=== PATIENT | male | born 1965 | race Caucasian/White ===

== ENCOUNTER 2023-08-14 07:32 | Outpatient (REF) | payer OTHER, SELFPAY ==
[2023-08-14 11:43] LABS: Appearance Urine Clear; Color Urine Dark Yellow; Glucose Urine UA Negative (Negative); Leukocyte Esterase Urine Negative (Negative); Nitrite Urine Negative (Negative); Specific Gravity - Urine 1.025 (1.005-1.025); Urine Blood Negative (Negative); Urine Ketones Trace mg/dL (Negative); Urine Protein Negative (Neg-Trace)
[2023-08-14 12:31] LABS: Creatinine Urine 216.22 mg/dL; Microalbum/Creatinine Ratio Ur 4.6 ug/mg cr (<30)
[2023-08-14 12:48] LABS: Prostate Specific Antigen Scr 3.87 ng/mL (<0.05-4.0)
[2023-08-14 12:55] LABS: Alanine Aminotransferase 45 U/L (0-40); Albumin Level 4.7 g/dL (3.5-5.0); Alkaline Phosphatase 58 U/L (39-117); Anion Gap 14 (12-20); Aspartate Amino Transferase 36 U/L (5-37); Bilirubin Total 0.6 mg/dL (0.0-1.0); Blood Urea Nitrogen 14 mg/dL (9-16); Calcium 9.8 mg/dL (8.4-10.2); Carbon Dioxide 28 mmol/L (22-29); Chloride 101 mmol/L (96-108); Cholesterol 206 mg/dL (<200); Estimated Glomerular Filt Rate > 60; Glucose Fasting 111 mg/dL (60-99); HDL Cholesterol 72 mg/dL (>40); LDL Cholesterol Calculated 110 mg/dL (<100); Potassium 3.6 mmol/L (3.3-5.1); Sodium 139 mmol/L (135-145); Total Protein 7.6 g/dL (6.5-8.0); Triglycerides 124 mg/dL (<150)
[2023-08-14 12:57] LABS: TSH reflex Free T4 3.02 uIU/mL (0.32-4.0)
== END 2023-08-14 07:33 | disposition home or self-care (01) ==
LOC: HO.WFDLDS 07:32
PROVIDERS: Visit Provider Family Medicine
DX: Z00.00 Encounter for general adult medical examination without abnormal findings (principal); Z12.5 Encounter for screening for malignant neoplasm of prostate; I10 Essential (primary) hypertension
CPT/HCPCS: 36415; 80053; 80061; 81003; 82043; 82570; 84153; 84443

== ENCOUNTER 2023-08-15 15:53 | Outpatient (AMB) | payer OTHER, SELFPAY ==
--- NOTE | 2023-08-15 15:59 | A.OFFPC_ITS ---
Vital Signs 08/15/23 16:06 Height 5 ft 9.33 in Weight 211 lb BMI 30.9 BP 116/74 Blood Pressure Location Lt brachial Position Sitting Respiration 14 Pulse 86 Pulse Source Pulse Oximeter Temp 98.5 F Temp Source Oral Pulse Oximetry (%) 95 Oxygen Delivery Method Room Air Intake Visit Reasons: CPE with f/u labs and health maintenance Intake Note: Physical. Lab results. Patient forgot to mention last visit that he is supposed to be on Lisinopril 40mg, he has been taking 20mg twice daily when blood pressure is elevated. Allergies No Known Allergies Allergy (Verified 11/20/22 15:13) Tobacco use date assessed: 08/15/23 Dental Screening Did you have a dental visit in the last 12 months?: Yes Did you have a dental problem in the last 6 months where you did not have access to dental care?: No Was dental information given to patient?: Patient has dentist HPI CPE with f/u labs and health maintenance HPI Details 57 y/o male presents for a CPE with f/u labs and health maintenance. Labs were drawn 08/14/23. Reviewed labs with pt. Elevated fasting glucose of 111. A1c today 08/15/23 5.4%. Elevated ALT of 45. AST 36. Triglycerides 124. TC 206. LDL 110. HDL 72. Blood pressure today 116/74. He reports he is taking lisinopril 40mg and hydrochlorothiazide 12.5mg daily. He states he thought his previous prescription was 20mg but had went home and saw it was actually 40mg. Pt notes he is due for a colonoscopy. [facility] Medical History (Updated 08/15/23 @ 17:05 by Prieto Bhatia) Infected abrasion of skin of right middle finger High blood pressure Family History (Updated 11/20/22 @ 15:20 by Cassidy Benites [facility]) Father Diabetes Paternal Grandmother No problems noted. 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 1. Little interest or pleasure in doing things: not at all 2. Feeling down, depressed, or hopeless: not at all 4. Feeling tired or having little energy: not at all 5. Poor appetite or overeating: not at all 6. Feeling bad about yourself - or that you are a failure or have let yourself or your family down: not at all 7. Trouble concentrating on things, such as reading the newspaper or watching television: not at all 8. Moving or speaking so slowly that other people could have noticed. Or the opposite - being so fidgety or restless that you have been moving around a lot more than usual: not at all 9. Thoughts that you would be better off or of hurting yourself in some way: not at all Depression Screening Interpretation: Negative Depression Screening Done: Yes [id number] - PHQ-9 Billing: Yes Source: Developed by Drs. Darnell Reza, Mary Rich, Chad Todd and colleagues, with an educational odalis from [employer]. Thrive Questionnaire Date Thrive assessed: 08/15/23 What is your living situation today?: I have a steady place to live Within the past 12 months, did the food you bought not last and you didn't have the money to get more?: Never true Within the past 12 months, did you worry whether your food would run out before you got money to buy more?: Never true Do you have trouble paying for medicines?: No Do you have trouble getting transportation to medical appointments?: No Do you have trouble paying your heating and electricity bill?: No Do you have trouble taking care of your child, family member or friend?: No Do you have trouble with day-to-day activities such as bathing, preparing meals, shopping, managing finances, etc.?: No Are you currently unemployed and looking for a job?: No Are you interested in more education?: No Please select the resources that you would like help with: None THRIVE Score: 0 AUDIT C Alcohol Use Questionnaire (AUDIT-C) 1. How often do you have a drink containing alcohol?: 2-3 times a week 2. How many drinks containing alcohol do you have on a typical day when you are drinking?: 1 or 2 3. How often do you have six or more drinks on one occasion?: Never Total Score: 3 Review of Systems Const Denies chills, Denies fatigue, Denies fever(s), Denies headache(s) and Denies weakness Eyes Denies change in vision ENT Denies dizziness, Denies headache(s), Denies hearing loss, Denies nasal congestion, Denies sinus pain, Denies sinus pressure and Denies sore throat Card Denies chest pain, Denies lightheadedness, Denies dyspnea and Denies other (palpitations) Resp Denies cough, Denies dyspnea and Denies wheezing GI Denies abdominal pain, Denies melena, Denies hematochezia, Denies change in bowel habits, Denies dyspepsia and Denies nausea Denies hematuria and Denies dysuria Musc Denies abnormal gait, Denies myalgias, Denies arthralgias, Denies numbness and Denies tingling Skin/Breast Denies rash, Denies unusual bruising and Denies wounds Neuro Denies abnormal gait, Denies dizziness, Denies headache(s), Denies memory loss, Denies numbness, Denies Sensory deficit (Neuro), Denies tingling and Denies weakness Psych Denies anxiety, Denies depression and Denies memory loss Endo Denies cold intolerance, Denies fatigue, Denies heat intolerance, Denies polyd ipsia and Denies polyuria Tone/Lymph Denies easy bleeding and Denies easy bruising Aller/Immun Denies wheezing Physical exam (Primary Care) Vital Signs: Last Vital Signs Temp 98.5 F 08/15/23 16:06 Pulse 86 08/15/23 16:06 Resp 14 08/15/23 16:06 BP 116/74 08/15/23 16:06 Pulse Ox 95 08/15/23 16:06 Oxygen Delivery Method Room Air 08/15/23 16:06 BMI result Body Mass Index 30.9 Tobacco/Smoking Status: Tobacco use Status Tobacco use date assessed 08/15/23 08/15/23 16:10 Patient Tobacco Use Status Former Tobacco user 08/15/23 16:10 e-Cigarette/Vaping Use Never Used 08/15/23 16:00 Depression Screening Interpretation: Negative Thrive Assessment: Date of Thrive Assessment Date Thrive assessed 08/15/23 08/15/23 16:27 Const General: no acute distress, well developed, alert and awake Nutritional Appearance: well nourished Orientation/consciousness: patient oriented x3 HENMT Head: Yes normocephalic and Yes atraumatic Ears: hearing grossly normal bilaterally and TM's normal bilaterally General nose exam: Normal external nose present and Normal nares present Mouth: Normal oral and palatal mucosa present and moist mucous membranes Teeth and gingiva: dentition normal Throat: Yes posterior oropharynx normal Eyes General: appearance normal, both eyes and all related structures Pupils: Equal, round and reactive pupils present and Pupil accommodation reflex normal EOM: EOMs intact bilaterally Neck Neck: Yes normal visual inspection, Yes no lymphadenopathy and Yes trachea midline Thyroid: Thyroid normal Carotids: no bruits Lymphatic: no lymphadenopathy noted Chest Chest palpation & inspection: normal inspection of the chest Resp Effort & Inspection: normal respiratory effort Auscultation: clear to auscultation bilaterally Cardio Rate: regular rate Rhythm: regular rhythm Heart sounds: S1 normal heart sound present, S2 normal heart sound present, no gallops, no murmurs and no rubs Bruits: no abdominal aortic bruits and no carotid bruits GI Palpation (GI): No Abdominal aortic bruit present, Soft to palpation, nontender, No hepatosplenomegaly present and No Rebound tenderness present Auscultation: normal bowel sounds General: Yes no CVA tenderness Back/Spine/Pelvis Back: no CVA tenderness Cervical Spine: cervical ROM normal and No Cervical spine tenderness Thoracic/Lumbar Spine: thoraco-lumbar ROM normal, No pain with thoraco-lumbar ROM, No thoracic spinal tenderness and No lumbar spinal tenderness Skin Lesions: no lesions Rashes: no rashes Trauma: no lacerations or abrasions Wounds: no wounds Nails: normal Neuro General: patient oriented x3 Cranial nerves: Yes Equal, round and reactive pupils present Cognition (Neuro): normal cognition Gait exam (Neuro): Normal gait present Motor exam (neuro): 5/5 motor strength present throughout Sensory Exam: No Sensory deficit (Neuro) Deep tendon reflexes (DTR's): Right patellar reflex intensity grade: 2+ and Left patellar reflex intensity grade: 2+ Extrem General: Yes normal to inspection and No edema Psych Appearance: grossly normal Affect: normal affect Attitude: cooperative Thought process: Normal thought process present Results AMB Hemoglobin A1c AMB Hemoglobin A1c 5.4 % Last Edit by Cassidy Benites CMA on 08/15/23 17:02 Assessment and Plan Assessment & Plan (1) Adult general medical exam: Code(s): Z00.00 - Encounter for general adult medical examination without abnormal findings Plan: 57-year-old?male?presents?for?complete?physical?exam Encouraged?healthy?diet?with?active?lifestyle?and?plenty?of?exercise (2) High blood pressure: Code(s): I10 - Essential (primary) hypertension Plan: He?has?been?taking?lisinopril?40?mg?daily?and?hydrochlorothiazide?12.5?mg?daily. Blood?pressure?is?controlled.??Goal?is?less?than?140/90 Continue?current?medication?regimen.??Increased?lisinopril?as?our?med?list?recor ded?lisinopril?as?20?mg?daily. (3) Elevated ALT measurement: Code(s): R74.01 - Elevation of levels of liver transaminase levels Plan: Mildly?elevated?ALT?and?patient?has?known?fatty?liver?disorder.??Last?liver?ultr asound?around?10?years?ago Encouraged?weight?loss Will?repeat?liver?enzymes?and?if?they?are?the?same?or?high er?will?check?an?ultrasound. (4) Elevated fasting glucose: Code(s): R73.01 - Impaired fasting glucose Plan: A1c?5.4%?is?in?normal?range. Likely?has?some?insulin?resistance?and?has?a?strong?family?history?of?diabetes Encouraged?a?diet?lower?in?sugars?and?starches.??Encouraged?exercise?and? weight?loss (5) Screening for colon cancer: Code(s): Z12.11 - Encounter for screening for malignant neoplasm of colon Plan: Patient?had?a?colonoscopy?greater?than?10?years?ago. Will?refer?to?GI?for?colon?cancer?screen (6) Screening for prostate cancer: Code(s): Z12.5 - Encounter for screening for malignant neoplasm of prostate Plan: PSA?at?upper?limits?of?normal?range?will?repeat?this?to?check?for?stability. He?notes?that?it?has?been?in?the?upper?limits?of?normal?previously?and?he?has?borden d?some?workup?regarding?this. Denies?any?changes?in?urine?stream May?need?KYLE (7) Fatty liver disease, nonalcoholic: Code(s): K76.0 - Fatty (change of) liver, not elsewhere classified Plan: As?above Encouraged?weight?loss Orders: Orders Comprehensive [place]. Panel Fast Today R74.01 - Elevation of levels of liver transaminase levels, Z00.00 - Encounter for general adult medical examination without abnormal findings AMB Hemoglobin A1c Today Z13.9 - Encounter for screening, unspecified Hemoglobin A1c Today R73.01 - Impaired fasting glucose Prostate Specific Antigen Scr Today Z12.5 - Encounter for screening for malignant neoplasm of prostate Medications: Changed From lisinopril 20 mg PO DAILY 90 days 90 tabs 1RF To lisinopril 40 mg PO DAILY 90 tabs 1RF 90 days From hydrochlorothiazide 12.5 mg PO DAILY 30 days 30 tabs 1RF To hydrochlorothiazide 12.5 mg PO DAILY 90 tabs 1RF 90 days Coding Level of Care Code Est Pt Level 3 (64865) Est Pt Prev Care 40-64y(41660) Diagnoses Adult general medical exam Z00.00 High blood pressure I10 Elevated ALT measurement R74.01 Elevated fasting glucose R73.01 Screening for colon cancer Z12.11 Screening for prostate cancer Z12.5 Fatty liver disease, nonalcoholic K76.0
[2023-08-15 16:06] VITALS: BP 116/74; PULSE 86; RESP 14; TEMP 36.9; O2SAT 95; BMI 30.9
== END 2023-08-15 17:00 ==
PROVIDERS: PCP Family Medicine; Visit Provider Family Medicine
DX: Z00.00 Encounter for general adult medical examination without abnormal findings (principal); I10 Essential (primary) hypertension; R74.01 Elevation of levels of liver transaminase levels; R73.01 Impaired fasting glucose; Z12.11 Encounter for screening for malignant neoplasm of colon; Z12.5 Encounter for screening for malignant neoplasm of prostate; K76.0 Fatty (change of) liver, not elsewhere classified
CPT/HCPCS: 83036; 99396

== ENCOUNTER 2024-04-13 12:33 | Outpatient (AMB) | payer OTHER, SELFPAY ==
--- NOTE | 2024-04-13 12:35 | A.OFFPC_ITS ---
Vital Signs 04/13/24 12:39 Height 5 ft 9.33 in Weight 220 lb 4 oz BMI 32.2 BP 120/72 Blood Pressure Location Rt brachial Position Sitting Respiration 16 Pulse 62 Pulse Source Pulse Oximeter Temp 97.8 F Temp Source Oral Pulse Oximetry (%) 97 Oxygen Delivery Method Room Air Intake Visit Reasons: Feel like having large prostate Intake Note: patient here c/o having a large prostate Tourist Guide Required: No Allergies No Known Allergies Allergy (Verified 04/13/24 12:45) Medication List - Last Reconciled 04/13/24 by Hardik Montgomery CNP hydrochlorothiazide 12.5 mg PO DAILY 90 days lisinopril 40 mg PO DAILY 90 days Tobacco use date assessed: 04/13/24 Dental Screening Dental Screen Date: 04/13/24 Did you have a dental visit in the last 12 months?: Yes Did you have a dental problem in the last 6 months where you did not have access to dental care?: No Was dental information given to patient?: Patient has dentist HPI HPI Comments History of Present Illness Details 58-year-old male presents complaints of pressure sensation to his rectum, as though he had to have a bowel movement, for a few days, about 3 weeks ago. He notes associated inability to fully empty his bladder for a few days. His symptoms completely resolved. He denies acute symptoms at this time. He is a patient of Dr. Torres He admits to taking his medications as prescribed without adverse reactions [facility] Medical History (Updated 04/13/24 @ 13:00 by Hardik Montgomery CNP) Laboratory exam ordered as part of routine general medical examination Adult general medical exam Screening for colon cancer Screening for prostate cancer Infected abrasion of skin of right middle finger High blood pressure Family History (Updated 11/20/22 @ 15:20 by Cassidy Benites CMA) Father Diabetes Paternal Grandmother No problems noted. 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 1. Little interest or pleasure in doing things: not at all 2. Feeling down, depressed, or hopeless: not at all 3. Trouble falling or staying asleep, or sleeping too much: not at all 4. Feeling tired or having little energy: not at all 5. Poor appetite or overeating: not at all 6. Feeling bad about yourself - or that you are a failure or have let yourself or your family down: not at all 7. Trouble concentrating on things, such as reading the newspaper or watching television: not at all 8. Moving or speaking so slowly that other people could have noticed. Or the opposite - being so fidgety or restless that you have been moving around a lot more than usual: not at all 9. Thoughts that you would be better off or of hurting yourself in some way: not at all Total score: 0 Source: Developed by Drs. Darnell Reza, Mary Rich, Chad Todd and colleagues, with an educational odalis from [employer]. Thrive Questionnaire Date Thrive assessed: 04/13/24 I am a: Patient What is your living situation today?: I have a steady place to live Within the past 12 months, did the food you bought not last and you didn't have the money to get more?: Never true Within the past 12 months, did you worry whether your food would run out before you got money to buy more?: Never true Do you have trouble paying for medicines?: No Do you have trouble getting transportation to medical appointments?: No Do you have trouble paying your heating and electricity bill?: No Do you have trouble taking care of your child, family member or friend?: No Do you have trouble with day-to-day activities such as bathing, preparing meals, shopping, managing finances, etc.?: No Are you currently unemployed and looking for a job?: No Are you interested in more education?: No Please select the resources that you would like help with: None Currently or been in a relationship where the following occur: No concerns reported THRIVE Score: 0 AUDIT C Alcohol Use Questionnaire (AUDIT-C) 1. How often do you have a drink containing alcohol?: 2-3 times a week 2. How many drinks containing alcohol do you have on a typical day when you are drinking?: 1 or 2 3. How often do you have six or more drinks on one occasion?: Never Total Score: 3 REX-7 AMB Questionnaire REX-7 Date REX - 7 assessed: 04/13/24 Feeling nervous, anxious, or on edge: 0 = Not at all Not being able to stop or control worryin = Not at all Worrying too much about different things: 0 = Not at all Trouble relaxin = Not at all Being so restless that it is hard to sit still: 0 = Not at all Becoming easily annoyed or irritable: 0 = Not at all Feeling afraid as if something awful might happen: 0 = Not at all Total REX-7 score (0-4 normal; 5-9 mild; 10-14 moderate; 15-21 severe): 0 Source: Developed by Drs. Darnell Reza, Mary Rich, Chad Todd and colleagues, with an educational odalis from [employer]. REX-7 Assessment Billing REX-7 Assessment Tool: REX-7 Assessment 87199 Review of Systems Const Details: Const Denies chills, Denies fatigue, Denies fever(s), Denies headache(s) and Denies weakness ENT Denies dizziness and Denies headache(s) Card Denies chest pain, Denies lightheadedness, Denies dyspnea and Denies other (Palpitations) Resp Denies cough, Denies dyspnea, Denies wheezing and Denies other ( shortness of breath) GI Denies abdominal pain, Denies melena, Denies hematochezia, Denies change in bowel habits, Denies dyspepsia and Denies nausea Reports as per HPI Musc Denies abnormal gait, Denies myalgias, Denies arthralgias, Denies numbness and Denies tingling Skin/Breast Denies rash, Denies unusual bruising and Denies wounds Neuro Denies abnormal gait, Denies dizziness, Denies headache(s), Denies memory loss, Denies numbness, Denies Sensory deficit (Neuro), Denies tingling and Denies weakness Psych Denies anxiety, Denies depression, Denies memory loss Endo Denies cold intolerance, Denies fatigue, Denies heat intolerance, Denies polydipsia and Denies polyuria Aller/Immun Denies wheezing Physical exam (Primary Care) Vital Signs: Last Vital Signs Temp 97.8 F 04/13/24 12:39 Pulse 62 04/13/24 12:39 Resp 16 04/13/24 12:39 BP 120/72 04/13/24 12:39 Pulse Ox 97 04/13/24 12:39 Oxygen Delivery Method Room Air 04/13/24 12:39 BMI result Body Mass Index 32.2 Tobacco/Smoking Status: Tobacco use Status Tobacco use date assessed 04/13/24 04/13/24 12:42 Patient Tobacco Use Status Former Tobacco user 04/13/24 12:37 e-Cigarette/Vaping Use Never Used 04/13/24 12:37 PHQ-9: PHQ-9 Score PHQ-9: Total score 0 04/13/24 12:37 Thrive Assessment: Date of Thrive Assessment Date Thrive assessed 04/13/24 04/13/24 12:42 Currently or been in a relationship where the following occur: No concerns reported Const Other: General: no acute distress and well developed Nutritional Appearance: well nourished Orientation/consciousness: patient oriented x3 HENMT Head: Yes normocephalic and Yes atraumatic Eyes General: appearance normal, both eyes and all related structures Pupils: Equal, round and reactive pupils present EOM: EOMs intact bilaterally Resp Effort & Inspection: normal respiratory effort Auscultation: clear to auscultation bilaterally Cardio Rate: regular rate Rhythm: regular rhythm Heart sounds: S1 normal heart sound present, S2 normal heart sound present, no gallops, no murmurs and no rubs GI Palpation (GI): No Abdominal aortic bruit present, Soft to palpation, nontender, No hepatosplenomegaly present and No Rebound tenderness present Auscultation: normal bowel sounds General: Yes no CVA tenderness Back/Spine/Pelvis Back: no CVA tenderness Extrem General: Yes normal to inspection, No edema and No calf tenderness Skin General: warm and dry. Normal skin color. Normal skin turgor Neuro General: patient oriented x3, gait normal and no focal neuro deficit Cranial nerves: Yes Equal, round and reactive pupils present Cognition (Neuro): normal cognition Gait exam (Neuro): Normal gait present Sensory Exam: No Sensory deficit (Neuro) Psych Appearance: grossly normal Affect: normal affect Attitude: cooperative Thought process: Normal thought process present Coding Level of Care Code Est Pt Level 4 (54974) Diagnoses (genitourinary) symptoms R39.9 Additional Codes REX-7 Assessment Billing - REX-7 Assessment Tool: REX-7 Assessment 03785 ([id number]) Assessment & Plan Assessment & Plan (1) (genitourinary) symptoms: Code(s): R39.9 - Unspecified symptoms and signs involving the genitourinary system Category: Medical Plan: Enlarged prostate is likely although UTI may have been possible His PSA level in July was on the high end of normal, 3.87 Will recheck PSA level and check urinalysis/culture Referred to urology Advised to schedule a follow-up appointment with his PCP as planned for hypertension and labs review Return sooner with symptoms or concerns Verbalized understanding and agreed with treatment plan Orders: Orders PSA, Ultra Sensitive Today R39.9 - Unspecified symptoms and signs involving the genitourinary system UA CC w/rflx Micro + Cult Today R39.9 - Unspecified symptoms and signs involving the genitourinary system Referrals Urology Referral R39.9 - Unspecified symptoms and signs involving the genitourinary system
[2024-04-13 12:39] VITALS: BP 120/72; PULSE 62; RESP 16; TEMP 36.6; O2SAT 97; BMI 32.2
== END 2024-04-13 16:22 | disposition home or self-care (01) ==
PROVIDERS: PCP Family Medicine; Visit Provider Nurse Practitioner Family
DX: R39.9 Unspecified symptoms and signs involving the genitourinary system (principal)

== ENCOUNTER → 2024-04-13 12:33 | Outpatient (BNVA) | payer OTHER, SELFPAY | PROVIDERS: PCP Family Medicine; Visit Provider Nurse Practitioner Family ==

== ENCOUNTER 2024-04-13 13:07 | Outpatient (REF) | payer OTHER, SELFPAY ==
[2024-04-13 14:29] LABS: Estimated Average Glucose 114 mg/dL; Hemoglobin A1C 143.3385 umol/L; Hemoglobin A1c % 5.6 % (<6.0)
[2024-04-13 14:40] LABS: Alanine Aminotransferase 55 U/L (0-40); Albumin Level 4.4 g/dL (3.5-5.0); Alkaline Phosphatase 43 U/L (39-117); Anion Gap 11 (12-20); Aspartate Amino Transferase 38 U/L (5-37); Bilirubin Total 0.5 mg/dL (0.0-1.0); Blood Urea Nitrogen 14 mg/dL (9-16); Calcium 9.5 mg/dL (8.4-10.2); Carbon Dioxide 29 mmol/L (22-29); Chloride 105 mmol/L (96-108); Estimated Glomerular Filt Rate > 60; Glucose Fasting 94 mg/dL (60-99); Potassium 3.5 mmol/L (3.3-5.1); Sodium 141 mmol/L (135-145); Total Protein 6.8 g/dL (6.5-8.0)
[2024-04-13 15:01] LABS: Prostate Specific Antigen Scr 3.39 ng/mL (<0.05-4.0)
[2024-04-13 17:25] LABS: Appearance Urine Clear; Color Urine Dark Yellow; Glucose Urine UA Negative (Negative); Leukocyte Esterase Urine Negative (Negative); Nitrite Urine Negative (Negative); Specific Gravity - Urine 1.025 (1.005-1.025); Urine Blood Negative (Negative); Urine Ketones Trace mg/dL (Negative); Urine Protein Negative (Neg-Trace)
[2024-04-17 19:59] LABS: PSA, Ultra Sensitive 3.02 ng/mL
== END 2024-04-13 13:08 | disposition home or self-care (01) ==
LOC: HO.WFDLDS 13:07
PROVIDERS: Referring Provider Nurse Practitioner Family; Visit Provider Family Medicine
DX: R39.9 Unspecified symptoms and signs involving the genitourinary system (principal); Z00.00 Encounter for general adult medical examination without abnormal findings; R74.01 Elevation of levels of liver transaminase levels; R73.01 Impaired fasting glucose; Z12.5 Encounter for screening for malignant neoplasm of prostate
CPT/HCPCS: 36415; 80053; 81003; 83036; 84153; 96127

== ENCOUNTER 2024-06-02 16:12 | Outpatient (AMB) | payer OTHER, SELFPAY ==
--- NOTE | 2024-06-02 16:19 | MHC.PC.OV ---
Vital Signs 06/02/24 16:21 Height 5 ft 9.33 in Weight 221 lb BMI 32.3 BP 120/70 Blood Pressure Location Lt brachial Position Sitting Respiration 14 Pulse 60 Pulse Source Pulse Oximeter Temp 98.1 F Temp Source Oral Pulse Oximetry (%) 96 Oxygen Delivery Method Room Air Intake Visit Reasons: 3 mos HTN Intake Note: follow for htn Allergies No Known Allergies Allergy (Verified 06/02/24 16:19) Tobacco use date assessed: 04/13/24 Dental Screening Dental Screen Date: 04/13/24 HPI 3 mos HTN HPI Details 58 y/o male presents to f/u hypertension. Blood pressure today 120/70, 60p. He is on lisinopril 40mg, HCTZ 12.5mg daily. [facility] Medical History (Updated 06/02/24 @ 16:54 by Prieto Bhatia) Screening for colon cancer Laboratory exam ordered as part of routine general medical examination Adult general medical exam Screening for prostate cancer Infected abrasion of skin of right middle finger High blood pressure Family History (Updated 11/20/22 @ 15:20 by Cassidy Benites [facility]) Father Diabetes Paternal Grandmother No problems noted. 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 1. Little interest or pleasure in doing things: not at all 2. Feeling down, depressed, or hopeless: not at all 3. Trouble falling or staying asleep, or sleeping too much: not at all 4. Feeling tired or having little energy: not at all 5. Poor appetite or overeating: not at all 6. Feeling bad about yourself - or that you are a failure or have let yourself or your family down: not at all 7. Trouble concentrating on things, such as reading the newspaper or watching television: not at all 8. Moving or speaking so slowly that other people could have noticed. Or the opposite - being so fidgety or restless that you have been moving around a lot more than usual: not at all 9. Thoughts that you would be better off or of hurting yourself in some way: not at all Total score: 0 Source: Developed by Drs. Darnell Reza, Mary Rich, Chad Todd and colleagues, with an educational odalis from [employer] Thrive Questionnaire Date Thrive assessed: 04/13/24 I am a: Patient What is your living situation today?: I have a steady place to live Within the past 12 months, did the food you bought not last and you didn't have the money to get more?: Never true Within the past 12 months, did you worry whether your food would run out before you got money to buy more?: Never true Do you have trouble paying for medicines?: No Do you have trouble getting transportation to medical appointments?: No Do you have trouble paying your heating and electricity bill?: No Do you have trouble taking care of your child, family member or friend?: No Do you have trouble with day-to-day activities such as bathing, preparing meals, shopping, managing finances, etc.?: No Are you currently unemployed and looking for a job?: No Are you interested in more education?: No Please select the resources that you would like help with: None Currently or been in a relationship where the following occur: No concerns reported THRIVE Score: 0 AUDIT C Alcohol Use Questionnaire (AUDIT-C) 1. How often do you have a drink containing alcohol?: 2-4 times a month 2. How many drinks containing alcohol do you have on a typical day when you are drinking?: 1 or 2 3. How often do you have six or more drinks on one occasion?: Never Total Score: 2 REX-7 AMB Questionnaire REX-7 Date REX - 7 assessed: 04/13/24 Feeling nervous, anxious, or on edge: 0 = Not at all Not being able to stop or control worryin = Not at all Worrying too much about different things: 0 = Not at all Trouble relaxin = Not at all Being so restless that it is hard to sit still: 0 = Not at all Becoming easily annoyed or irritable: 0 = Not at all Feeling afraid as if something awful might happen: 0 = Not at all Total REX-7 score (0-4 normal; 5-9 mild; 10-14 moderate; 15-21 severe): 0 Source: Developed by Drs. Darnell Reza, Mary Rich, Chad Todd and colleagues, with an educational odalis from [employer] Review of Systems Const Denies chills, Denies fatigue, Denies fever(s), Denies headache(s) and Denies weakness ENT Denies dizziness and Denies headache(s) Card Denies dyspnea Resp Denies cough, Denies dyspnea, Denies wheezing and Denies other (shortness of breath) Musc Denies numbness and Denies tingling Neuro Denies dizziness, Denies headache(s), Denies numbness, Denies tingling and Denies weakness Psych Denies anxiety and Denies depression Endo Denies fatigue Aller/Immun Denies wheezing Physical exam (Primary Care) Vital Signs: Last Vital Signs Temp 98.1 F 06/02/24 16:21 Pulse 60 06/02/24 16:21 Resp 14 06/02/24 16:21 BP 120/70 06/02/24 16:21 Pulse Ox 96 06/02/24 16:21 Oxygen Delivery Method Room Air 06/02/24 16:21 BMI result Body Mass Index 32.3 Tobacco/Smoking Status: Tobacco use Status Tobacco use date assessed 04/13/24 06/02/24 16:23 Patient Tobacco Use Status Former Tobacco user 06/02/24 16:23 e-Cigarette/Vaping Use Never Used 06/02/24 16:23 PHQ-9: PHQ-9 Score PHQ-9: Total score 0 06/02/24 16:53 Thrive Assessment: Date of Thrive Assessment Date Thrive assessed 04/13/24 06/02/24 16:23 Currently or been in a relationship where the following occur: No concerns reported Const General: well developed; No acute distress Nutritional Appearance: well nourished Orientation/consciousness: patient oriented x3 HENMT Head: Yes normocephalic and Yes atraumatic Eyes General: appearance normal, both eyes and all related structures Pupils: Equal, round and reactive pupils present EOM: EOMs intact bilaterally Resp Effort & Inspection: normal respiratory effort Auscultation: clear to auscultation bilaterally Cardio Rate: regular rate Rhythm: regular rhythm Heart sounds: S1 normal heart sound present, S2 normal heart sound present, no gallops, no murmurs and no rubs Neuro General: patient oriented x3 and gait normal Cranial nerves: Yes Equal, round and reactive pupils present Psych Affect: normal affect Coding Level of Care Code Est Pt Level 3 (95723) Diagnoses High blood pressure I10 Screening for colon cancer Z12.11 Assessment & Plan Assessment & Plan (1) High blood pressure: Code(s): I10 - Essential (primary) hypertension Category: Medical Plan: Blood?pressure?is?well?controlled.??Goal?is?less?than?140/neck Continue?current?medication (2) Screening for colon cancer: Code(s): Z12.11 - Encounter for screening for malignant neoplasm of colon Category: Medical Plan: Refer?to?Gastroenterology Medications: Refilled hydrochlorothiazide 12.5 mg PO DAILY 90 days 90 tabs 1RF lisinopril 40 mg PO DAILY 90 days 90 tabs 1RF
[2024-06-02 16:21] VITALS: BP 120/70; PULSE 60; RESP 14; TEMP 36.7; O2SAT 96; BMI 32.3
== END 2024-06-02 16:57 | disposition home or self-care (01) ==
PROVIDERS: PCP Family Medicine; Visit Provider Family Medicine
DX: I10 Essential (primary) hypertension (principal); Z12.11 Encounter for screening for malignant neoplasm of colon

== ENCOUNTER → 2024-06-02 16:12 | Outpatient (BNVA) | payer OTHER, SELFPAY | PROVIDERS: PCP Family Medicine; Visit Provider Family Medicine ==

== ENCOUNTER 2024-06-11 13:11 | Outpatient (AMB) | payer OTHER, SELFPAY ==
--- NOTE | 2024-06-11 13:17 | A.OFFVIS_ITS ---
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 Cognitive needs: No Hearing needs: No Vision needs: Yes Office Procedures Post Void Residual Post Residual Void Post Void Residual (PVR): 17 20590-Inrm Void Residual by ultrasound Results AMB Urinalysis, Automated UA Leukoctes 0 Cameron/uL Last Edit by LEODAN Mayo on 06/11/24 13:28 UA Nitrite Negative Last Edit by LEODAN Mayo on 06/11/24 13:28 UA Urobilinogen 0.2 mg/dL Last Edit by LEODAN Mayo on 06/11/24 13:2 8 UA Protein 0 mg/dL Last Edit by LEODAN Mayo on 06/11/24 13:28 UA pH 6.0 Last Edit by LEODAN Mayo on 06/11/24 13:28 UA Blood 0 Akash/uL Last Edit by LEODAN Mayo on 06/11/24 13:28 UA Specific [place] 1.010 Last Edit by LEODAN Mayo on 06/11/24 13: 28 UA Ketone Negative Last Edit by LEODAN Mayo on 06/11/24 13:28 UA Bilirubin 0 mg/dL Last Edit by LEODAN Mayo on 06/11/24 13:28 UA Glucose 0 mg/dL Last Edit by LEODAN Mayo on 06/11/24 13:28 Results Reviewed Results Reviewed: Laboratory Last Values Urine pH (Auto) 6.0 06/11/24 13:27 Specific [place] (Auto) 1.010 06/11/24 13:27 Urine Protein (Auto) 0 mg/dL 06/11/24 13:27 Glucose (UA)(Auto) 0 mg/dL 06/11/24 13:27 Urine Ketones (Auto) Negative 06/11/24 13:27 Urine Blood (Auto) 0 Akash/uL 06/11/24 13:27 Urine Nitrite (Auto) Negative 06/11/24 13:27 Urine Bilirubin (Auto) 0 mg/dL 06/11/24 13:27 Urine Urobilinogen (Auto) 0.2 mg/dL 06/11/24 13:27 Leukocyte Esterase (Auto) 0 Cameron/uL 06/11/24 13:27 Assessment & Plan Assessment & Plan Orders: Orders AMB Urinalysis Automated Today Z13.9 - Encounter for screening, unspecified Coding CPT Codes Post Residual Void - PVR CPT Code: 34686-Uiwz Void Residual by ultrasound ([id number])
== END 2024-06-11 13:55 | disposition home or self-care (01) ==
PROVIDERS: PCP Family Medicine; Visit Provider Urology
DX: Z13.9 Encounter for screening, unspecified (principal)

== ENCOUNTER → 2024-06-11 13:11 | Outpatient (BNVA) | payer OTHER, SELFPAY | PROVIDERS: PCP Family Medicine; Visit Provider Urology | DX: N40.1 Benign prostatic hyperplasia with lower urinary tract symptoms (principal); N13.8 Other obstructive and reflux uropathy; R39.12 Poor urinary stream; R39.9 Unspecified symptoms and signs involving the genitourinary system | CPT/HCPCS: 51798; 81003 ==

== ENCOUNTER 2024-07-29 14:11 | Outpatient (AMB) | payer OTHER, SELFPAY ==
--- NOTE | 2024-07-29 13:00 | MHC.OFFVIS ---
Intake Visit Reasons: Cysto Intake Note: Patient is present for cysto Urology Medication:NONE Antibiotic Allergy:NONE Blood Thinner:NONE Corporate Trust Officer Required: No Allergies No Known Allergies Allergy (Verified 07/29/24 14:19) HPI Comments Details: 07/29/24-- Here for cysto. Findings: - Cystoscopy: No suspicious bladder lesions; noted bladder wall thickening Patient initially evaluated 06/11/24, in addition to BPH symptoms, reported episode of blood in the urine. We discussed the significance of the observed hematuria and the importance of pursuing further diagnostic imaging with renal ultrasound to evaluate renal involvement, a detail which remains critical given the patient's clinical history. Cystoscopy findings revealed no bladder tumors, though there is noted bladder wall thickening. Pt has h/o nicotine use. States FH father - bladder removed due to bladder cancer and PGF had prostate cancer. I elaborated on the possible implications of the genetic predisposition to bladder and prostate cancer, considering the patient's family history. He consented to continue with the prescribed ultrasound imaging. The need for follow-up after imaging was emphasized for appropriate assessment and planning for possible prostate-related medication commencement. Detailed discussion regarding any potential treatment modifications following results was deferred until post-evaluation. Urinary Symptoms Review - Blood in the urine noted for one week - Sensation of rectal pressure present for one week and resolved - Hematuria resolved spontaneously - No current urinary stream difficulties 06/11/24--58-year-old male here for evaluation for BPH symptoms, weak urinary stream. Past medical history hypertension on hydrochlorothiazide. Urinalysis within normal limits bladder scan within normal limits. Ultrasound urinary tract, follow-up office cystoscopy [facility] Medical History Screening for colon cancer Laboratory exam ordered as part of routine general medical examination Adult general medical exam Screening for prostate cancer Infected abrasion of skin of right middle finger High blood pressure Family History Father Diabetes Paternal Grandmother No problems noted. 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 Cognitive needs: No Hearing needs: No Vision needs: Yes Review of Systems Const All systems reviewed & are unremarkable except as noted in HPI and below Reports no additional complaints Eyes Reports no additional complaints ENT Reports no additional complaints Card Reports no additional complaints Resp Reports no additional complaints GI Reports no additional complaints Reports as per HPI Musc Reports no additional complaints Skin/Breast Reports system reviewed and no additional complaints, except as documented Neuro Reports no additional complaints Psych Reports no additional complaints Endo Reports no additional complaints Tone/Lymph Reports no additional complaints Aller/Immun Reports no additional complaints Office Procedures Cystoscopy Consent Discussed risk and benefit or proposed procedure with the patient. Information consent for procedure given to the patient. Discussed technical aspects, risks, benefits and alternatives in full. Addressed all of the patient's questions and concerns regarding the procedure. The patient demonstrated knowledge and understanding. They wish to proceed with this procedure. Preparation The patient was prepped in the usual manner. A range mechanic was present and in the room. Genitalia was prepped with betadine solution in a sterile manner. Lidocaine Jelly 2% was placed into the urethra and 16Fr flexible Olympus cystoscope was inserted into the meatus after adequate lubrication. Procedure Time out per protocol performed. Bladder Inspection Bladder Inspection: The bladder was inspected in its entirety with utilization retroflexion displaying: Tumor(s): no suspicious bladder lesions visualized Trabeculation: Mild Moderate Mucosal Erthema: NA Orifices: normal shape and position Urethra: normal Cystoscopy findings: prostatic urethra bilobar enlargement, bulbous urethra WNL, no suspicious bladder lesions visualized [id number] DISPOSABLE SCOPE URO-G FLEXIBLE SCOPE Procedure code (CPT) selection complete Office Meds lidocaine HCl 2 % mucosal jelly in applicator Performing Provider: Dre Hwang MD [facility] Administered by: Melanie Garner RN on 07/29/24 14:42 Dose Route Admin Location Dispensed Lot Number Expiration Date [facility] Licensing Services Clerk 10 mL intra-urethral 10 mL ciprofloxacin HCl 500 mg tablet Performing Provider: Dre Hwang MD Performing [facility] Administered by: Melanie Garner RN on 07/29/24 14:42 Dose Route Admin Location Dispensed Lot Number Expiration Date [place] Licensing Services Clerk 500 mg PO 1 tab Results AMB Urinalysis, Automated UA Leukoctes 0 Cameron/uL Last Edit by Nelly Agosto on 07/29/24 14:36 UA Nitrite Negative Last Edit by Nelly Agosto on 07/29/24 14:36 UA Urobilinogen 3.5 mg/dL Last Edit by Nelly Agosto on 07/29/24 14:36 UA Protein 0 mg/dL Last Edit by Nelly Agosto on 07/29/24 14:36 UA pH 6.5 Last Edit by Nelly Agosto on 07/29/24 14:36 UA Blood 10 Akash/uL Last Edit by Nelly Agosto on 07/29/24 14:36 UA Specific [place] 1.015 Last Edit by Nelly Agosto on 07/29/24 14:36 UA Ketone Negative Last Edit by Nelly Agosto on 07/29/24 14:36 UA Bilirubin 0 mg/dL Last Edit by Nelly Agosto on 07/29/24 14:36 UA Glucose 0 mg/dL Last Edit by Nelly Agosto on 07/29/24 14:36 Results Reviewed Results Reviewed: Laboratory Last Values Urine pH (Auto) 6.5 07/29/24 15:40 Specific [place] (Auto) 1.015 07/29/24 15:40 Urine Protein (Auto) 0 mg/dL 07/29/24 15:40 Glucose (UA)(Auto) 0 mg/dL 07/29/24 15:40 Urine Ketones (Auto) Negative 07/29/24 15:40 Urine Blood (Auto) 10 Akash/uL 07/29/24 15:40 Urine Nitrite (Auto) Negative 07/29/24 15:40 Urine Bilirubin (Auto) 0 mg/dL 07/29/24 15:40 Urine Urobilinogen (Auto) 3.5 mg/dL 07/29/24 15:40 Leukocyte Esterase (Auto) 0 Cameron/uL 07/29/24 15:40 Assessment & Plan Assessment & Plan (1) BPH loc w urin obs/LUTS: Code(s): N40.1 - Benign prostatic hyperplasia with lower urinary tract symptoms Category: Medical (2) Weak urinary stream: Code(s): R39.12 - Poor urinary stream Category: Medical (3) Hematuria: Code(s): R31.9 - Hematuria, unspecified Category: Medical (4) Bladder wall thickening: Code(s): N32.89 - Other specified disorders of bladder Category: Medical Plan Plan Evaluation of current hematuria will continue with renal ultrasound to assess for any potential nephrolithiasis or renal conditions. The completed cystoscopy rules out bladder tumors, though bladder wall thickening noted may point to benign prostatic hyperplasia or common age-related changes. We acknowledge the patient's family history of bladder and prostate cancer, and ongoing vigilance for these conditions remains necessary. Post-ultrasound, management options such as medication for possible prostatic conditions will be discussed. Follow-up care and recommendations will be based on imaging results, with a heightened awareness of the patient's oncological risks. Orders: Orders AMB Urinalysis Automated Today R39.9 - Unspecified symptoms and signs involving the genitourinary system AMB Cystoscopy Today N40.1 - Benign prostatic hyperplasia with lower urinary tract symptoms, R39.12 - Poor urinary stream, R39.9 - Unspecified symptoms and signs involving the genitourinary system Patient Instructions: Patient Instructions - Schedule and attend renal ultrasound appointment as directed. - Monitor for recurrent symptoms of hematuria or difficulty during urination. - Follow up with medical team for ultrasound result discussions. - Feel free to contact the office should there be any acute changes in symptoms. - Remain aware of family history and bring any related questions to the follow-up appointment. - Consider lifestyle modifications discussed, including reducing potential risk factors for genito-urinary conditions. The patient had an opportunity to ask questions regarding treatment plan. The patient expressed understanding and agreement with the above treatment plan. The patient is aware they should contact our office by phone for worsening of their current condition or the appearance of new symptoms. Compliance is encouraged with any medications and followup testing that is ordered. It is a privilege to be allowed the opportunity to participate in the urologic care of your patient. If you have any questions or concerns regarding treatment for the above conditions please do not hesitate to contact me. The office telephone contact is [phone]. This note is constructed in part using voice recognition software. While every effort has been made to ensure accuracy drafter electromechanical errors may have been included. Yours sincerely, Dre Hwang MD Coding Level of Care Code Est Pt Level 3 (67875) Diagnoses BPH loc w urin obs/LUTS N40.1 Weak urinary stream R39.12 Hematuria R31.9 Bladder wall thickening N32.89 CPT Codes Cystoscopy - CPT: 71308-Swerzeiaiy ([id number])
== END 2024-07-29 15:16 | disposition home or self-care (01) ==
PROVIDERS: PCP Family Medicine; Visit Provider Urology
DX: N40.1 Benign prostatic hyperplasia with lower urinary tract symptoms (principal); R39.12 Poor urinary stream; R31.9 Hematuria, unspecified; N32.89 Other specified disorders of bladder; R39.9 Unspecified symptoms and signs involving the genitourinary system
CPT/HCPCS: 52000

== ENCOUNTER → 2024-07-29 14:11 | Outpatient (BNVA) | payer OTHER, SELFPAY | PROVIDERS: PCP Family Medicine; Visit Provider Urology | DX: R31.9 Hematuria, unspecified (principal); N40.1 Benign prostatic hyperplasia with lower urinary tract symptoms; N13.8 Other obstructive and reflux uropathy; R39.12 Poor urinary stream; N32.89 Other specified disorders of bladder | CPT/HCPCS: 52000; 81003 ==

== ENCOUNTER 2024-09-11 13:39 | Outpatient (REF) | payer OTHER, SELFPAY ==
--- NOTE | ~2024-09-11 | US_ITS ---
EXAMINATION: US RETROPERITONEUM HISTORY: R39.9 - Unspecified symptoms and signs involving the genitourinary system TECHNIQUE: Real-time grayscale ultrasound imaging of the kidneys was performed and images were reviewed. COMPARISON: There are no prior studies for comparison. FINDINGS: Right kidney: The right kidney measures 11.8 x 5.3 x 5.0 cm. Renal parenchymal echotexture and thickness are normal. There is an upper pole cyst measuring 2.0 x 1.7 x 1.8 cm. There is no hydronephrosis or renal calculi. Left Kidney: The left kidney measures 11.5 x 5.0 x 4.2 cm. Renal parenchymal echotexture and thickness are normal. There is trace perinephric fluid in the interpolar region versus a tiny exophytic cyst. There is a 5 mm echogenic focus of the lower pole which may represent a nonobstructing calculus or calcified vessel. There is no hydronephrosis. The urinary bladder is unremarkable. Bilateral ureteral jets are identified. Before voiding, the urinary bladder measured 12.0 x 6.9 x 8.0 cm, for an estimated volume of 347 mL. After voiding, the urinary bladder measured 4.8 x 3.7 x 4.6 cm, for an estimated volume of 43 mL. The prostate measures 3.7 x 3.8 x 3.9 cm. US/US retroperitoneal comp IMPRESSION: 1. 2.0 cm right upper pole renal cyst. 2. 5 mm nonobstructing calculus at the lower pole versus a calcified vessel. 3. Post void bladder residual of 43 mL. Electronically signed by: Darnell Merlos MD 09/11/2024 03:07 PM EDT
== END 2024-09-11 13:40 | disposition home or self-care (01) ==
LOC: HO.US 13:39
PROVIDERS: PCP Family Medicine; Visit Provider Urology
DX: R39.9 Unspecified symptoms and signs involving the genitourinary system (principal); R39.12 Poor urinary stream; N40.1 Benign prostatic hyperplasia with lower urinary tract symptoms
CPT/HCPCS: 76770

== ENCOUNTER → 2024-09-11 13:43 | Outpatient (BNV) | payer OTHER, SELFPAY | PROVIDERS: PCP Family Medicine; Visit Provider Radiology Diagnostic Radiology | DX: R39.89 Other symptoms and signs involving the genitourinary system (principal) | CPT/HCPCS: 76770 ==

== ENCOUNTER 2024-10-01 10:51 | Outpatient (AMB) | payer OTHER, SELFPAY ==
--- NOTE | 2024-10-01 10:57 | MHC.PC.OV ---
Vital Signs 10/01/24 11:02 Height 5 ft 9.33 in Weight 221 lb 2 oz BMI 32.3 BP 122/68 Blood Pressure Location Lt brachial Position Sitting Respiration 14 Pulse 92 Pulse Source Pulse Oximeter Temp 97.9 F Temp Source Oral Pulse Oximetry (%) 97 Oxygen Delivery Method Room Air Intake Visit Reasons: f/u hypertension Intake Note: patient is scheduled for HTN and needs a refill on lisinopril. Allergies No Known Allergies Allergy (Verified 10/01/24 10:59) Medication List - Last Reconciled 10/01/24 by Lavelle Torres MD hydrochlorothiazide 12.5 mg PO DAILY 90 days lisinopril 40 mg PO DAILY 90 days Tobacco use date assessed: 10/01/24 Dental Screening Dental Screen Date: 10/01/24 Did you have a dental visit in the last 12 months?: Yes Did you have a dental problem in the last 6 months where you did not have access to dental care?: No Was dental information given to patient?: No HPI f/u hypertension HPI Details 58 y/o male presents to f/u hypertension. BP today 122/68, 92p. He is on lisinopril, HCTZ. Follows up with urology for blood in urine. Has an appt. with them soon. Pt requests a cologuard test as he notes they keep rescheduling his colonoscopy. [facility], LAT[facility] Medical History Screening for colon cancer Laboratory exam ordered as part of routine general medical examination Adult general medical exam Screening for prostate cancer Infected abrasion of skin of right middle finger High blood pressure Family History Father Diabetes Paternal Grandmother No problems noted. 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 Cognitive needs: No Hearing needs: No Vision needs: Yes Questionnaire Thrive Questionnaire Date Thrive assessed: 10/01/24 I am a: Patient What is your living situation today?: I have a steady place to live Within the past 12 months, did the food you bought not last and you didn't have the money to get more?: Never true Within the past 12 months, did you worry whether your food would run out before you got money to buy more?: Never true Do you have trouble paying for medicines?: No Do you have trouble getting transportation to medical appointments?: No Do you have trouble paying your heating and electricity bill?: No Do you have trouble taking care of your child, family member or friend?: No Do you have trouble with day-to-day activities such as bathing, preparing meals, shopping, managing finances, etc.?: No Are you currently unemployed and looking for a job?: No Are you interested in more education?: No Please select the resources that you would like help with: None Currently or been in a relationship where the following occur: No concerns reported THRIVE Score: 0 REX-7 AMB Questionnaire REX-7 Date REX - 7 assessed: 10/01/24 Source: Developed by Drs. Darnell Reza, Mary Rich, Chad Todd and colleagues, with an educational odalis from [employer]. Review of Systems Const Denies chills, Denies fatigue, Denies fever(s), Denies headache(s) and Denies weakness ENT Denies dizziness and Denies headache(s) Card Denies dyspnea Resp Denies cough, Denies dyspnea, Denies wheezing and Denies other (shortness of breath) Musc Denies numbness and Denies tingling Neuro Denies dizziness, Denies headache(s), Denies numbness, Denies tingling and Denies weakness Psych Denies anxiety and Denies depression Endo Denies fatigue Aller/Immun Denies wheezing Physical exam (Primary Care) Vital Signs: Last Vital Signs Temp 97.9 F 10/01/24 11:02 Pulse 92 10/01/24 11:02 Resp 14 10/01/24 11:02 BP 122/68 10/01/24 11:02 Pulse Ox 97 10/01/24 11:02 Oxygen Delivery Method Room Air 10/01/24 11:02 BMI result Body Mass Index 32.3 Tobacco/Smoking Status: Tobacco use Status Tobacco use date assessed 10/01/24 10/01/24 11:05 Patient Tobacco Use Status Former Tobacco user 05/08/25 10:58 e-Cigarette/Vaping Use Never Used 10/01/24 10:58 Thrive Assessment: Date of Thrive Assessment Date Thrive assessed 10/01/24 10/01/24 11:05 Currently or been in a relationship where the following occur: No concerns reported Const General: well developed; No acute distress Nutritional Appearance: well nourished Orientation/consciousness: patient oriented x3 HENMT Head: Yes normocephalic and Yes atraumatic Eyes General: appearance normal, both eyes and all related structures Pupils: Equal, round and reactive pupils present EOM: EOMs intact bilaterally Resp Effort & Inspection: normal respiratory effort Auscultation: clear to auscultation bilaterally Cardio Rate: regular rate Rhythm: regular rhythm Heart sounds: S1 normal heart sound present, S2 normal heart sound present, no gallops, no murmurs and no rubs Neuro General: patient oriented x3 and gait normal Cranial nerves: Yes Equal, round and reactive pupils present Psych Affect: normal affect Coding Level of Care Code Est Pt Level 4 (73761) Diagnoses High blood pressure I10 Hematuria R31.9 Screening for colon cancer Z12.11 Screening for prostate cancer Z12.5 Assessment & Plan Assessment & Plan (1) High blood pressure: Code(s): I10 - Essential (primary) hypertension Category: Medical Plan: Blood?pressure?is?controlled.??Goal?is?less?than?140/90 Continue?current?medications (2) Hematuria: Code(s): R31.9 - Hematuria, unspecified Category: Medical Plan: Followed?by?Urology?and?has?next?appointment?in?a?week Follow-up?with?urology?as?recommended (3) Screening for colon cancer: Code(s): Z12.11 - Encounter for screening for malignant neoplasm of colon Category: Medical Plan: Still?awaiting?appointment?with?Gastroenterology Patient?requests?Cologuard-ordered (4) Screening for prostate cancer: Code(s): Z12.5 - Encounter for screening for malignant neoplasm of prostate Category: Medical Plan: Check?PSA?level Orders: Orders Prostate Specific Antigen Scr Today Z12.5 - Encounter for screening for malignant neoplasm of prostate Comprehensive [place]. Panel Fast Today Z00.00 - Encounter for general adult medical examination without abnormal findings Lipid Panel Today Z00.00 - Encounter for general adult medical examination without abnormal findings Microalbumin, Random (w Creat) Today I10 - Essential (primary) hypertension TSH reflex Free T4 Today Z00.00 - Encounter for general adult medical examination without abnormal findings UA CC w/rflx Micro + Cult Today Z00.00 - Encounter for general adult medical examination without abnormal findings Referrals Cologuard Test Z12.11 - Encounter for screening for malignant neoplasm of colon, Z12.12 - Encounter for screening for malignant neoplasm of rectum Medications: Refilled lisinopril 40 mg PO DAILY 90 days 90 tabs 3RF hydrochlorothiazide 12.5 mg PO DAILY 90 days 90 tabs 3RF
[2024-10-01 11:02] VITALS: BP 122/68; PULSE 92; RESP 14; TEMP 36.6; O2SAT 97; BMI 32.3
== END 2024-10-01 12:03 | disposition home or self-care (01) ==
LOC: HO.HMCFM 10:52
PROVIDERS: PCP Family Medicine; Visit Provider Family Medicine
DX: I10 Essential (primary) hypertension (principal); R31.9 Hematuria, unspecified; Z12.11 Encounter for screening for malignant neoplasm of colon; Z12.5 Encounter for screening for malignant neoplasm of prostate

== ENCOUNTER → 2024-10-01 10:51 | Outpatient (BNVA) | payer OTHER, SELFPAY | PROVIDERS: PCP Family Medicine; Visit Provider Family Medicine | DX: Z13.89 Encounter for screening for other disorder (principal) ==

== ENCOUNTER 2024-10-06 10:30 | Outpatient (AMB) | payer OTHER, SELFPAY ==
--- NOTE | 2024-10-06 10:31 | A.OFFVIS_ITS ---
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 Right Kidney - 2.0 cm right upper pole renal cyst. 07/29/24-- Here for cysto. Findings: - Cystoscopy: No suspicious bladder lesions; noted bladder wall thickening Patient initially evaluated 06/11/24, in addition to BPH symptoms, reported episode of blood in the urine. We discussed the significance of the observed hematuria and the importance of pursuing further diagnostic imaging with renal ultrasound to evaluate renal involvement, a detail which remains critical given the patient's clinical history. Cystoscopy findings revealed no bladder tumors, though there is noted bladder wall thickening. Pt has h/o nicotine use. States FH father - bladder removed due to bladder cancer and PGF had prostate cancer. I elaborated on the possible implications of the genetic predisposition to bladder and prostate cancer, considering the patient's family history. He consented to continue with the prescribed ultrasound imaging. The need for follow-up after imaging was emphasized for appropriate assessment and planning for possible prostate-related medication commencement. Detailed discussion regarding any potential treatment modifications following results was deferred until post-evaluation. Urinary Symptoms Review - Blood in the urine noted for one week - Sensation of rectal pressure present for one week and resolved - Hematuria resolved spontaneously - No current urinary stream difficulties 06/11/24--58-year-old male here for evaluation for BPH symptoms, weak urinary stream. Past medical history hypertension on hydrochlorothiazide. Urinalysis within normal limits bladder scan within normal limits. Ultrasound urinary tract, follow-up office cystoscopy [facility] Medical History Screening for prostate cancer Screening for colon cancer Laboratory exam ordered as part of routine general medical examination Adult general medical exam Infected abrasion of skin of right middle finger High blood pressure Family History Father Diabetes Paternal Grandmother No problems noted. 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 Cognitive needs: No Hearing needs: No Vision needs: Yes Telehealth Telehealth Telehealth Platform: [employer] Location of provider rendering services: practice address Location of patient: address on file Patient Identification confirmed using: Name, : Yes Telehealth method: video Patient verbally consented to treatment: Yes Patient verbally consented to billing insurance company: Yes Patient informed of any privacy concerns related to visit: Yes Results Reviewed Results Reviewed: Date of Service: 09/11/24 EXAMINATION: US RETROPERITONEUM HISTORY: R39.9 - Unspecified symptoms and signs involving the genitourinary system TECHNIQUE: Real-time grayscale ultrasound imaging of the kidneys was performed and images were reviewed. COMPARISON: There are no prior studies for comparison. FINDINGS: Right kidney: The right kidney measures 11.8 x 5.3 x 5.0 cm. Renal parenchymal echotexture and thickness are normal. There is an upper pole cyst measuring 2.0 x 1.7 x 1.8 cm. There is no hydronephrosis or renal calculi. Left Kidney: The left kidney measures 11.5 x 5.0 x 4.2 cm. Renal parenchymal echotexture and thickness are normal. There is trace perinephric fluid in the interpolar region versus a tiny exophytic cyst. There is a 5 mm echogenic focus of the lower pole which may represent a nonobstructing calculus or calcified vessel. There is no hydronephrosis. The urinary bladder is unremarkable. Bilateral ureteral jets are identified. Before voiding, the urinary bladder measured 12.0 x 6.9 x 8.0 cm, for an estimated volume of 347 mL. After voiding, the urinary bladder measured 4.8 x 3.7 x 4.6 cm, for an estimated volume of 43 mL. The prostate measures 3.7 x 3.8 x 3.9 cm. IMPRESSION: 1. 2.0 cm right upper pole renal cyst. 2. 5 mm nonobstructing calculus at the lower pole versus a calcified vessel. 3. Post void bladder residual of 43 mL. Assessment & Plan Assessment & Plan (1) BPH loc w urin obs/LUTS: Code(s): N40.1 - Benign prostatic hyperplasia with lower urinary tract symptoms Category: Medical (2) Weak urinary stream: Code(s): R39.12 - Poor urinary stream Category: Medical (3) Hematuria: Code(s): R31.9 - Hematuria, unspecified Category: Medical (4) Bladder wall thickening: Code(s): N32.89 - Other specified disorders of bladder Category: Medical Plan Reviewed renal US results Patient Instructions: The patient had an opportunity to ask questions regarding treatment plan. The patient expressed understanding and agreement with the above treatment plan. The patient is aware they should contact our office by phone for worsening of their current condition or the appearance of new symptoms. Compliance is encouraged with any medications and followup testing that is ordered. It is a privilege to be allowed the opportunity to participate in the urologic care of your patient. If you have any questions or concerns regarding treatment for the above conditions please do not hesitate to contact me. The office telephone contact is [phone]. This note is constructed in part using voice recognition software. While every effort has been made to ensure accuracy executive sous chef errors may have been included. Yours sincerely, Dre Hwang MD Coding Level of Care Code Tele Est Pt Level 3 (29419) Diagnoses BPH loc w urin obs/LUTS N40.1 Weak urinary stream R39.12 Hematuria R31.9 Bladder wall thickening N32.89
== END 2024-10-06 16:05 | disposition home or self-care (01) ==
PROVIDERS: PCP Family Medicine; Visit Provider Urology
DX: N40.1 Benign prostatic hyperplasia with lower urinary tract symptoms (principal); R39.12 Poor urinary stream; R31.9 Hematuria, unspecified; N32.89 Other specified disorders of bladder
CPT/HCPCS: 99213

== ENCOUNTER 2025-01-26 13:30 | Outpatient (REF) | payer OTHER, SELFPAY ==
--- OUTSIDE RECORDS SUMMARY | 2025-01-26 14:47 | XMS_ITS | Clinical Summary ---
Author Organization [facility] Address [address] [place], [place] [id number] Phone Care Team Providers Care Folding Machine Setter Name Role Phone Milo Morales DO Unavailable [phone] Elisha Haynes MD Primary Care Provider [phone] Allergies No known active allergies Medications lisinopril (PRINIVIL,ZESTRIL ) 20 MG tablet Orally Activ e hydroCHLOROthiazi de (HYDRODIURIL) 6.25 mg quarter tablet Active Active Problems Problem Noted Date Diagnosed Date Left knee pain 02/20/2018 Family History Medical History Relation Comments Cancer Unspecified Diabetes Unspecified Relation Status Comments Unspecified Social History Tobacco Use Types Packs/Day Years Used Date Smoking Tobacco: Never Smokeless Tobacco: Never Alcohol Use Standard Drinks/Week Comments Yes 0 (1 standard drink = 0.6 oz pur e alcohol) Education Answer Date Recorded Are you interested in more education? Not on dory e 09/21/2022 Are you concerned about learning? Not on file 09/21/2022 No 09/21/2022 No 09/21/2022 Digital Access Answer Date Recorded No 10/20/2022 No 10/20/2022 Reliable internet access at home? Not on file 10/20/2022 Device with a working camera? Not on file Sex and Gender Information Value Date Recorded Sex Assigned at Not on file Legal Sex Male 9:43 PM EDT Gender Identity Not on file Sexual Orientation Not on file Last Filed Vital Signs Vital Sign Reading Time Taken Comments Blood Pressure 151/76 03/05/2018 1:39 PM EDT Pulse 99 03/05/2018 1:39 PM EDT Temperature - - Respiratory Rate - - Oxygen Saturation - - Inhaled Oxygen Concentration - - Weight 103 kg (227 lb 1.2 oz) 06/04/2018 3:21 PM EST Height 177.8 cm (5' 10 ) 06/04/2018 3:21 PM EST Body Mass Index 32.58 06/04/2018 3:21 PM EST Plan of Treatment Health Maintenance Due Date Last Done Comments Adult Td,Tdap Booster 1963 CREATININE LEVEL 1963 LIPID PANEL 1963 POTASSIUM LEVEL 1963 DEPRESSION SCREENING 1975 HEPATITIS C SCREENING 12/29/1981 HIV ONE-TIME SCREENING (18-6 5 YEARS) 12/29/1981 COLOGUARD 12/29/2008 COLONOSCOPY 12/29/2008 COLORECTAL CANCER SCREENING 12/29/2008 FIT TEST 12/29/2008 FOBT 12/29/2008 SIGMOIDOSCOPY 12/29/2008 VIRTUAL COLONOSCOPY 12/29/2008 PNEUMOCOCCAL VACCINES (50+ y ears) (1 of 1 - PCV) 12/29/2013 ZOSTER VACCINES (1 of 2) 12/29/2013 INFLUENZA VACCINE (#1) 2024 COVID-19 VACCINE ( - 2023-2 5 season) 2025 RSV VACCINE (1 - 1-dose 75+ series) 12/29/2038 SMOKING STATUS SCREENING (On ce After 26 Yrs) Completed 03/05/2018 HEPATITIS A VACCINES Aged Out No long er eligible based on patient's age to complete this topic HIB VACCINES Aged Out No longer eligi ble based on patient's age to complete this topic MENINGOCOCCAL VACCINES (ACWY) Aged Out No longer eligible based on patient's age to complete this topic MENINGOCOCCAL VACCINES (B) Aged Out N o longer eligible based on patient's age to complete this topic Medical Devices Not on file Insurance [facility] HMO O O [facility] O O HMO [facility] HMO Care Teams Folding Machine Setter Relationship Specialty Start Date End Date Elisha Haynes MD [address] [place] [id number] Orthopedics [facility], [place] [address] PCP - General 05/30/17 Milo Morales DO [address] [place] [address] Orthopedics Sports [facility], [place] [address] [email or web address] Historical LMR Provider 03/11/17 Additional Source Comments The information contained in this document represents components of the legal health record. It is not the complete legal health record.[facility]
[2025-01-26 17:35] LABS: Appearance Urine Clear; Glucose Urine UA Negative (Negative); PH 6.0 (5.0-9.0); Specific Gravity - Urine 1.025 (1.005-1.025)
[2025-01-26 17:47] LABS: Microalbum/Creatinine Ratio Ur 3.5 ug/mg cr (<30)
[2025-01-26 18:18] LABS: Alanine Aminotransferase 97 U/L (0-40); Albumin Level 4.8 g/dL (3.5-5.0); Alkaline Phosphatase 56 U/L (39-117); Anion Gap 16 (12-20); Aspartate Amino Transferase 79 U/L (5-37); Blood Urea Nitrogen 16 mg/dL (9-16); Calcium 9.6 mg/dL (8.4-10.2); Carbon Dioxide 26 mmol/L (22-29); Chloride 104 mmol/L (96-108); Cholesterol 190 mg/dL (<200); Estimated Glomerular Filt Rate > 60; HDL Cholesterol 64 mg/dL (>40); Potassium 3.6 mmol/L (3.3-5.1); Sodium 142 mmol/L (135-145); Total Protein 7.1 g/dL (6.5-8.0); Triglycerides 121 mg/dL (<150)
[2025-01-26 19:08] LABS: Free T4 (Free Thyroxine) 0.77 ng/dL (0.71-1.85)
== END 2025-01-26 13:31 | disposition home or self-care (01) ==
LOC: HO.WFDLDS 13:30
PROVIDERS: Visit Provider Family Medicine
DX: Z12.5 Encounter for screening for malignant neoplasm of prostate (principal); I10 Essential (primary) hypertension; Z00.00 Encounter for general adult medical examination without abnormal findings
CPT/HCPCS: 36415; 80053; 80061; 81003; 82043; 82570; 84153; 84439; 84443

== ENCOUNTER 2025-01-28 14:17 | Outpatient (AMB) | payer OTHER, SELFPAY ==
--- NOTE | 2025-01-28 14:28 | A.OFFPC_ITS ---
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 Blood pressure today 141/85, 73p. He is on lisinopril 40mg, HCTZ 12.5mg daily. Labs drawn 01/26/25. Reviewed labs with pt. Elevated liver enzymes - AST 79, ALT 97. Triglycerides 121. TC 190. LDL 102. HDL 64. PSA elevated at 4.51. TSH elevated at 8.60 uIU/mL. Free T4 0.77 ng/dL. Recent cologuard test negative. [facility] Medical History Screening for prostate cancer Screening for colon cancer Laboratory exam ordered as part of routine general medical examination Adult general medical exam Infected abrasion of skin of right middle finger High blood pressure Family History Father Diabetes Paternal Grandmother No problems noted. 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 Cognitive needs: No Hearing needs: No Vision needs: Yes Questionnaire Thrive Questionnaire Date Thrive assessed: 06/02/24 I am a: Patient What is your living situation today?: I have a steady place to live Within the past 12 months, did the food you bought not last and you didn't have the money to get more?: Never true Within the past 12 months, did you worry whether your food would run out before you got money to buy more?: Never true Do you have trouble paying for medicines?: No Do you have trouble getting transportation to medical appointments?: No Do you have trouble paying your heating and electricity bill?: No Do you have trouble taking care of your child, family member or friend?: No Do you have trouble with day-to-day activities such as bathing, preparing meals, shopping, managing finances, etc.?: No Are you currently unemployed and looking for a job?: No Are you interested in more education?: No Please select the resources that you would like help with: None Currently or been in a relationship where the following occur: No concerns reported THRIVE Score: 0 REX-7 AMB Questionnaire REX-7 Date REX - 7 assessed: 10/01/24 Source: Developed by Drs. Darnell Reza, Mary Rich, Chad Todd and colleagues, with an educational odalis from [employer]. Review of Systems Const Denies chills, Denies fatigue, Denies fever(s), Denies headache(s) and Denies weakness ENT Denies dizziness and Denies headache(s) Card Denies chest pain, Denies lightheadedness, Denies dyspnea and Denies other (Palpitations) Resp Denies cough, Denies dyspnea, Denies wheezing and Denies other ( shortness of breath) Musc Denies numbness and Denies tingling Neuro Denies dizziness, Denies headache(s), Denies numbness, Denies tingling, Denies paresthesias and Denies weakness Psych Denies anxiety and Denies depression Endo Denies fatigue Aller/Immun Denies wheezing Physical exam (Primary Care) Vital Signs: Last Vital Signs Temp 97.4 F 01/28/25 14:50 Pulse 73 01/28/25 14:50 Resp 16 01/28/25 14:50 BP 141/85 H 01/28/25 14:50 Pulse Ox 97 01/28/25 14:50 Oxygen Delivery Method Room Air 01/28/25 14:50 BMI result Body Mass Index 32.5 Tobacco/Smoking Status: Tobacco use Status Tobacco use date assessed 01/28/25 01/28/25 14:53 Patient Tobacco Use Status Former Tobacco user 01/28/25 14:28 e-Cigarette/Vaping Use Never Used 01/28/25 14:28 Thrive Assessment: Date of Thrive Assessment Date Thrive assessed 06/02/24 01/28/25 14:28 Currently or been in a relationship where the following occur: No concerns reported Const General: no acute distress and well developed Nutritional Appearance: well nourished Orientation/consciousness: patient oriented x3 HENMT Head: Yes normocephalic and Yes atraumatic Eyes General: appearance normal, both eyes and all related structures Pupils: Equal, round and reactive pupils present EOM: EOMs intact bilaterally Resp Effort & Inspection: normal respiratory effort Auscultation: clear to auscultation bilaterally Cardio Rate: regular rate Rhythm: regular rhythm Heart sounds: S1 normal heart sound present, S2 normal heart sound present, no gallops, no murmurs and no rubs Neuro General: patient oriented x3 and gait normal Cranial nerves: Yes Equal, round and reactive pupils present Psych Affect: normal affect Coding Level of Care Code Est Pt Level 4 (28400) Diagnoses High blood pressure I10 Elevated TSH R79.89 Elevated PSA R97.20 Elevated liver enzymes R74.8 Screening for colon cancer Z12.11 Assessment & Plan Assessment & Plan (1) High blood pressure: Code(s): I10 - Essential (primary) hypertension Category: Medical Plan: Blood pressure is high today. Goal is less than 140/90 He notes that he has been eating more salty foods leaning He also notes that he has been gaining weight Encouraged a diet lower in salt and sodium Encouraged weight loss No change to his medication regimen today but we discussed that if blood pressure is still elevated we will adjust his medications at his next visit. (2) Elevated TSH: Code(s): R79.89 - Other specified abnormal findings of blood chemistry Category: Medical Plan: TSH was high though his T4 was within normal range Will recheck thyroid hormone levels (3) Elevated PSA: Code(s): R97.20 - Elevated prostate specific antigen [PSA] Category: Medical Plan: Followed by urology Had recent retroperitoneal ultrasound and will follow-up with urology as recommended (4) Elevated liver enzymes: Code(s): R74.8 - Abnormal levels of other serum enzymes Category: Medical Plan: Liver enzymes are elevated and have risen verses prior Will check ultrasound Follow-up in about 2 months (5) Screening for colon cancer: Code(s): Z12.11 - Encounter for screening for malignant neoplasm of colon Category: Medical Plan: Cologuard test was negative Will continue screening every 3 years Orders: Orders Thyroid Stimulating Hormone Today E03.9 - Hypothyroidism, unspecified, R79.89 - Other specified abnormal findings of blood chemistry Free T4 (Free Thyroxine) Today E03.9 - Hypothyroidism, unspecified, R79.89 - Other specified abnormal findings of blood chemistry US abdomen rivera w elastography Today R74.8 - Abnormal levels of other serum enzymes Triiodothyronine T3 Total Today E03.9 - Hypothyroidism, unspecified, R79.89 - Other specified abnormal findings of blood chemistry Comprehensive [place]. Panel Fast Today R74.8 - Abnormal levels of other serum enzymes, Z00.00 - Encounter for general adult medical examination without abnormal findings
[2025-01-28 14:50] VITALS: BP 141/85; PULSE 73; RESP 16; TEMP 36.3; O2SAT 97; BMI 32.5
--- OUTSIDE RECORDS SUMMARY | 2025-01-28 15:39 | XMS_ITS | Clinical Summary ---
Author Organization [facility] Address [address] [facility] [address] [place], [place] [id number] Phone Care Team Providers Care Solution Analyst Name Role Phone Milo Morales DO Unavailable [phone] Elisha Haynes MD Primary Care Provider [phone] Allergies No known active allergies Medications lisinopril [...] topic Medical Devices Not on file Insurance [facility] HMO Care Teams Solution Analyst Relationship Specialty Start Date End Date Elisha Haynes MD [address] [place] [address] Orth[facility], [place] [address] PCP - General 05/30/17 Milo Morales DO [address] [place] [address] [facility], [place] [address] [email or web address] Historical LMR Provider 03/11/17 Additional Source Comments The information contained in this document represents components of the legal health record. It is not the complete legal health record.[facility]
== END 2025-01-28 17:05 ==
LOC: HO.HMCFM 14:18
PROVIDERS: PCP Family Medicine; Visit Provider Family Medicine
DX: I10 Essential (primary) hypertension (principal); R79.89 Other specified abnormal findings of blood chemistry; R97.20 Elevated prostate specific antigen [PSA]; R74.8 Abnormal levels of other serum enzymes; Z12.11 Encounter for screening for malignant neoplasm of colon

== ENCOUNTER 2025-03-29 15:31 | Outpatient (REF) | payer OTHER, SELFPAY ==
--- OUTSIDE RECORDS SUMMARY | 2025-03-29 16:42 | XMS_ITS | Clinical Summary ---
Author Organization [facility] Address [address] [facility] [address] [place], [place] [id number] Phone Care Team Providers Care Social Work Supervisor Name Role Phone Milo Morales DO Unavailable [phone] Elisha Haynes MD Primary Care Provider [phone] Allergies No known active allergies Medications lisinopril [...] 12/29/2013 INFLUENZA VACCINE (#1) 2024 COVID-19 VACCINE (1 - 2024-2 6 season) 2025 RSV VACCINE (1 - 1-dose [...] topic Medical Devices Not on file Insurance [facility] O O [facility] O O HMO [facility] Care Teams Social Work Supervisor Relationship Specialty Start Date End Date Elisha Haynes MD [address] [place] [address] Orthopedics Sports [facility], [place] [address] PCP - General 05/30/17 Milo Morales DO [address] [place] [address] [facility], [place] [address] [email or web address] Historical LMR Provider 03/11/17 Additional Source Comments The information contained in this document represents components of the legal health record. It is not the complete legal health record.[facility]
[2025-03-29 18:51] LABS: Alanine Aminotransferase 62 U/L (0-40); Albumin Level 4.6 g/dL (3.5-5.0); Alkaline Phosphatase 49 U/L (39-117); Anion Gap 12 (12-20); Aspartate Amino Transferase 45 U/L (5-37); Blood Urea Nitrogen 13 mg/dL (9-16); Calcium 9.3 mg/dL (8.4-10.2); Carbon Dioxide 29 mmol/L (22-29); Chloride 102 mmol/L (96-108); Estimated Glomerular Filt Rate > 60; Potassium 3.5 mmol/L (3.3-5.1); Sodium 139 mmol/L (135-145); Total Protein 6.8 g/dL (6.5-8.0)
[2025-03-29 18:53] LABS: Free T4 (Free Thyroxine) 0.73 ng/dL (0.71-1.85); Thyroid Stimulating Hormone 8.74 uIU/mL (0.32-4.0)
== END 2025-03-29 15:32 | disposition home or self-care (01) ==
LOC: HO.WFDLDS 15:31
PROVIDERS: Visit Provider Family Medicine
DX: Z00.00 Encounter for general adult medical examination without abnormal findings (principal); Z12.5 Encounter for screening for malignant neoplasm of prostate; E03.9 Hypothyroidism, unspecified; R79.89 Other specified abnormal findings of blood chemistry; R74.8 Abnormal levels of other serum enzymes
CPT/HCPCS: 36415; 80053; 84153; 84439; 84443; 84480

== ENCOUNTER 2025-04-01 15:30 | Outpatient (AMB) | payer OTHER, SELFPAY ==
--- NOTE | 2025-04-01 15:34 | MHC.PC.OV ---
Vital Signs 04/01/25 15:36 Height 5 ft 9.33 in Weight 226 lb 2 oz BMI 33.1 BP 129/66 Blood Pressure Location Lt brachial Position Sitting Pulse 70 Pulse Source Pulse Oximeter Temp 97.9 F Temp Source Oral Pulse Oximetry (%) 95 Oxygen Delivery Method Room Air Intake Visit Reasons: f/u HTN, labs - see comments Intake Note: Follow up Lab Technician Required: No Allergies No Known Allergies Allergy (Verified 04/01/25 15:35) Tobacco use date assessed: 04/01/25 Dental Screening Dental Screen Date: 01/28/25 HPI f/u HTN, labs - see comments HPI Details 59 y/o male presents to f/u HTN, elevated TSH, elevated liver enzymes Ultrasound of liver ordered. Labs drawn 03/29/25. Reviewed labs with pt. Ongoing elevated liver enzymes - AST 45, ALT 62. PSA 4.29 ng/mL. TSH 8.74 uIU/mL. BP today 129/66, 70p. He is on lisinopril 40mg, HCTZ 12.5mg daily. HPI Comments History of Present Illness Details Documentation assistance for Lavelle Torres MD, was provided by Prieto Bhatia, Seam Press Operator on 04/01/2025 at 3:40 PM EST. I, Dr. Torres, have read, observed, and verified documentation. [facility] Medical History Screening for prostate cancer Screening for colon cancer Laboratory exam ordered as part of routine general medical examination Adult general medical exam Infected abrasion of skin of right middle finger High blood pressure Family History Father Diabetes Paternal Grandmother No problems noted. 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 Current occupational exposures/hazards: No Cognitive needs: No Hearing needs: No Vision needs: Yes Questionnaire Thrive Questionnaire Date Thrive assessed: 06/02/24 I am a: Patient What is your living situation today?: I have a steady place to live Within the past 12 months, did the food you bought not last and you didn't have the money to get more?: Never true Within the past 12 months, did you worry whether your food would run out before you got money to buy more?: Never true Do you have trouble paying for medicines?: No Do you have trouble getting transportation to medical appointments?: No Do you have trouble paying your heating and electricity bill?: No Do you have trouble taking care of your child, family member or friend?: No Do you have trouble with day-to-day activities such as bathing, preparing meals, shopping, managing finances, etc.?: No Are you currently unemployed and looking for a job?: No Are you interested in more education?: No Please select the resources that you would like help with: None Currently or been in a relationship where the following occur: No concerns reported THRIVE Score: 0 AUDIT C Alcohol Use Questionnaire (AUDIT-C) 1. How often do you have a drink containing alcohol?: Monthly or less 2. How many drinks containing alcohol do you have on a typical day when you are drinking?: 1 or 2 3. How often do you have six or more drinks on one occasion?: Never Total Score: 1 REX-7 AMB Questionnaire REX-7 Date REX - 7 assessed: 10/01/24 Source: Developed by Drs. Darnell Reza, Mary Rich, Chad Todd and colleagues, with an educational odalis from [employer]. Review of Systems Const Denies chills, Denies fatigue, Denies fever(s), Denies headache(s) and Denies weakness ENT Denies dizziness and Denies headache(s) Card Denies dyspnea Resp Denies cough, Denies dyspnea, Denies wheezing and Denies other (shortness of breath) Musc Denies numbness and Denies tingling Neuro Denies dizziness, Denies headache(s), Denies numbness, Denies tingling and Denies weakness Psych Denies anxiety and Denies depression Endo Denies fatigue Aller/Immun Denies wheezing Physical exam (Primary Care) Vital Signs: Last Vital Signs Temp 97.9 F 04/01/25 15:36 Pulse 70 04/01/25 15:36 BP 129/66 04/01/25 15:36 Pulse Ox 95 04/01/25 15:36 Oxygen Delivery Method Room Air 04/01/25 15:36 BMI result Body Mass Index 33.1 Tobacco/Smoking Status: Tobacco use Status Tobacco use date assessed 04/01/25 04/01/25 15:41 Patient Tobacco Use Status Former Tobacco user 04/01/25 15:41 e-Cigarette/Vaping Use Never Used 04/01/25 15:41 Thrive Assessment: Date of Thrive Assessment Date Thrive assessed 06/02/24 04/01/25 15:41 Currently or been in a relationship where the following occur: No concerns reported Const General: well developed; No acute distress Nutritional Appearance: well nourished Orientation/consciousness: patient oriented x3 HENMT Head: Yes normocephalic and Yes atraumatic Eyes General: appearance normal, both eyes and all related structures Pupils: Equal, round and reactive pupils present EOM: EOMs intact bilaterally Resp Effort & Inspection: normal respiratory effort Auscultation: clear to auscultation bilaterally Cardio Rate: regular rate Rhythm: regular rhythm Heart sounds: S1 normal heart sound present, S2 normal heart sound present, no gallops, no murmurs and no rubs Neuro General: patient oriented x3 and gait normal Cranial nerves: Yes Equal, round and reactive pupils present Psych Affect: normal affect Results AMB Hemoglobin A1c AMB Hemoglobin A1c Cancelled % Last Edit by Nelly Fairchild CMA on 04/01/25 15:55 AMB Hemoglobin A1c previously reported as 5.4 Nelly Fairchild 04/01/25 15:55 CANCELLED per provider Results Reviewed Results Reviewed: Laboratory Last Values Hgb A1c (Clinic) Cancelled 04/01/25 15:41 Coding Level of Care Code Est Pt Level 4 (11947) Diagnoses High blood pressure I10 Elevated TSH R79.89 Elevated ALT measurement R74.01 Elevated PSA R97.20 Assessment & Plan Assessment & Plan (1) High blood pressure: Code(s): I10 - Essential (primary) hypertension Category: Medical Plan: Blood pressure is controlled. Goal is less than 140/90 Continue current medication (2) Elevated TSH: Code(s): R79.89 - Other specified abnormal findings of blood chemistry Category: Medical Plan: Persistently elevated TSH with normal T3 and T4 Patient is asymptomatic Likely asymptomatic hypothyroidism Will recheck in 2-3 months. If still elevated we can discuss a low dose levothyroxine such as 25-50 mcg. Alternatively, as patient is asymptomatic, we could continue to monitor (3) Elevated ALT measurement: Code(s): R74.01 - Elevation of levels of liver transaminase levels Category: Medical Plan: Patient has stopped drinking Liver enzymes have come down some though are still elevated He has not been called yet regarding liver ultrasound. Will ask the office check on the status of this order (4) Elevated PSA: Code(s): R97.20 - Elevated prostate specific antigen [PSA] Category: Medical Plan: Follow-up with urology as recommended Orders: Orders Thyroid Stimulating Hormone Today E03.9 - Hypothyroidism, unspecified, R79.89 - Other specified abnormal findings of blood chemistry Triiodothyronine T3 Total Today E03.9 - Hypothyroidism, unspecified, R79.89 - Other specified abnormal findings of blood chemistry Comprehensive Met. Panel Today R74.8 - Abnormal levels of other serum enzymes Free T4 (Free Thyroxine) Today E03.9 - Hypothyroidism, unspecified, R79.89 - Other specified abnormal findings of blood chemistry Thyroid Peroxidase Antibodies Today R79.89 - Other specified abnormal findings of blood chemistry Thyroglobulin Antibodies Today R79.89 - Other specified abnormal findings of blood chemistry
[2025-04-01 15:36] VITALS: BP 129/66; PULSE 70; TEMP 36.6; O2SAT 95; BMI 33.1
--- OUTSIDE RECORDS SUMMARY | 2025-04-01 18:25 | XMS_ITS | Clinical Summary ---
Author Organization [facility] Address [address] [facility] [address] [place], [place] [address] Phone Care Team Providers Care Bingo Attendant Name Role Phone Milo Morales DO Unavailable [phone] Elisha Haynes MD Primary Care Provider [phone] Allergies No known active allergies Medications lisinopril [...] topic Medical Devices Not on file Insurance [facility] O O [facility] O O HMO [facility] Care Teams Bingo Attendant Relationship Specialty Start Date End Date Elisha Haynes MD [address] [place] [address] Orthopedics Sports [facility], [place] [address] PCP - General 05/30/17 Milo Morales DO [address] [place] [address] [facility], [place] [address] [email or web address] Historical LMR Provider 03/11/17 Additional Source Comments The information contained in this document represents components of the legal health record. It is not the complete legal health record.[facility]
== END 2025-04-01 16:03 | disposition home or self-care (01) ==
LOC: HO.HMCFM 15:31
PROVIDERS: PCP Family Medicine; Visit Provider Family Medicine
DX: I10 Essential (primary) hypertension (principal); R79.89 Other specified abnormal findings of blood chemistry; R74.01 Elevation of levels of liver transaminase levels; R97.20 Elevated prostate specific antigen [PSA]; R73.01 Impaired fasting glucose